=== PATIENT | female | born 1990 ===

== ENCOUNTER 2017-04-04 12:13 | Emergency (ER) | payer OTHER ==
[2017-04-04 12:16] VITALS: BMI 39.1
[2017-04-04 12:19] VITALS: TEMP 99.9; O2SAT 99
[2017-04-04] MEDS ORDERED: guaiFENesin 200 mg/10 ml Syrup UD PO STA (12:46)
--- NOTE | 2017-04-04 13:13 | ED PDOC ---
Arrival/HPI - General Chief Complaint: Cough, Cold, Congestion Time Seen by Provider: 04/04/17 12:24 Historian: Patient - History of Present Illness Narrative History of Present Illness (Text): 04/04/17 13:10 26yo female who present with complaint of sore throat, ear pain, clear productive cough x 3days. States she took Nyquil yesterday. She denies fever, chill, abdominal pain, vomiting, sick contact, travel, any other complaint. Past Medical History - Provider Review Nursing Documentation Reviewed: Yes - Past History Past History: No Previous - Infectious Disease Hx of Infectious Diseases: None - Tetanus Immunization Tetanus Immunization: Unknown - Past Medical History Past Medical History: No Previous - Psychiatric Hx Depression: No Hx Emotional Abuse: No Hx Physical Abuse: No Hx Substance Use: Yes ('former use of marijuana') - Past Surgical History Past Surgical History: No Previous - Anesthesia Hx Anesthesia: No - Suicidal Assessment Feels Threatened In Home Enviroment: No Family/Social History - Physician Review Nursing Documentation Reviewed: Yes Family/Social History: Unknown Family HX Smoking Status: Never Smoked Hx Alcohol Use: Yes (former use) Hx Substance Use: Yes ('former use of marijuana') Hx Substance Use Treatment: No Allergies/Home Meds Allergies/Adverse Reactions: Allergies No Known Allergies Allergy (Verified 04/04/17 12:16) Review of Systems - Physician Review All systems were reviewed & negative as marked: Yes - Review of Systems Constitutional: Normal Eyes: Normal ENT: Normal Respiratory: Normal Cardiovascular: Normal Gastrointestinal: Normal Genitourinary Female: Normal Musculoskeletal: Normal Skin: Normal Neurological: Normal Endocrine: Normal Hemo/Lymphatic: Normal Psychiatric: Normal Physical Exam Vital Signs Temp Pulse Resp BP Pulse Ox 04/04/17 13:15 89 18 118/74 99 04/04/17 12:18 99.9 F H 95 H 17 120/75 99 Medical Decision Making - Medication Orders Current Medication Orders: Discontinued Medications Azithromycin (Zithromax) 500 mg PO STAT STA PRN Reason: Protocol Stop: 04/04/17 12:47 Last Admin: 04/04/17 13:21 Dose: 500 mg Guaifenesin (Robitussin) 200 mg PO Q4H STA Stop: 04/04/17 12:47 Last Admin: 04/04/17 13:21 Dose: 200 mg Ibuprofen (Motrin Tab) 600 mg PO STAT STA Stop: 04/04/17 12:48 Last Admin: 04/04/17 13:21 Dose: 600 mg Disposition/Present on Arrival - Present on Arrival Any Indicators Present on Arrival: No History of DVT/PE: No History of Uncontrolled Diabetes: No Urinary Catheter: No History of Decub. Ulcer: No History Surgical Site Infection Following: None - Disposition Have Diagnosis and Disposition been Completed?: Yes Diagnosis: URI (upper respiratory infection) Disposition: HOME/ ROUTINE Disposition Time: 13:15 Patient Plan: Discharge Patient Problems: Current Active Problems Problem Status Onset URI (upper respiratory infection) Acute Condition: STABLE Discharge Instructions (ExitCare): Upper Respiratory Infection (ED) Additional Instructions: Follow up with your doctor/clinic Return to ED for any new or worsening symptoms Rest and drink plenty of fluid Prescriptions: Albuterol HFA [Ventolin HFA 90 mcg/actuation (8 g)] 2 puff IH [id number] #1 puff Azithromycin [Zithromax] 250 mg PO DAILY #4 tab Promethazine [Phenergan Oral Syrup] 6.25 mg PO Q6 #118 dose Referrals: Cadence Price, [Primary Care Provider] - Follow up with primary
[2017-04-04 13:15] VITALS: BP 118/74; PULSE 89; RESP 18
== END 2017-04-04 13:25 | disposition home or self-care (01) ==
LOC: ED 12:13
DX: J06.9 Acute upper respiratory infection, unspecified (principal)

== ENCOUNTER 2017-07-21 15:32 | Emergency (ER) | payer SELFPAY ==
[2017-07-21 15:32] VITALS: BMI 39.1
--- NOTE | 2017-07-21 15:41 | ED PDOC ---
Arrival/HPI - General Time Seen by Provider: 07/21/17 15:40 Historian: Patient - History of Present Illness Narrative History of Present Illness (Text): 07/21/17 15:40 26 y/o female, pmh including uti, nkda, c/o Past Medical History - Past History Past History: No Previous - Infectious Disease Hx of Infectious Diseases: None - Tetanus Immunization Tetanus Immunization: Unknown - Past Medical History Past Medical History: No Previous - Psychiatric Hx Depression: No Hx Emotional Abuse: No Hx Physical Abuse: No Hx Substance Use: Yes ('former use of marijuana') - Past Surgical History Past Surgical History: No Previous - Anesthesia Hx Anesthesia: No - Suicidal Assessment Feels Threatened In Home Enviroment: No Family/Social History Smoking Status: Never Smoked Hx Alcohol Use: Yes (former use) Hx Substance Use: Yes ('former use of marijuana') Hx Substance Use Treatment: No Allergies/Home Meds Allergies/Adverse Reactions: Allergies No Known Allergies Allergy (Verified 04/04/17 12:16) Disposition/Present on Arrival - Present on Arrival History of DVT/PE: No History of Uncontrolled Diabetes: No Urinary Catheter: No History Surgical Site Infection Following: None - Disposition
== END 2017-07-21 15:33 | disposition left against medical advice (07) ==
LOC: ED 15:32
DX: Z02.89 Encounter for other administrative examinations (principal); R10.9 Unspecified abdominal pain

== ENCOUNTER 2018-08-26 13:51 | Emergency (ER) | payer OTHER ==
--- NOTE | 2018-08-26 15:05 | ED PDOC ---
Arrival/HPI - General Chief Complaint: Abdominal Pain Time Seen by Provider: 08/26/18 14:21 Historian: Patient - History of Present Illness Narrative History of Present Illness (Text): 08/26/18 15:05 A 27 year old female, with no significant past medical history, presents to the emergency department complaining of pelvic discomfort, breast tenderness, and nausea. Patient states she believes she might be has she is currently 10 days late on her menstrual period. Patient denies any vaginal bleeding, any urinary symptoms, vomiting, or any other complaints at this time. PMD: Dr. Zina Lester Past Medical History - Provider Review Nursing Documentation Reviewed: Yes - Past History Past History: No Previous - Infectious Disease Hx of Infectious Diseases: None - Tetanus Immunization Tetanus Immunization: Unknown - Past Medical History Past Medical History: No Previous - Psychiatric Hx Depression: No Hx Emotional Abuse: No Hx Physical Abuse: No Hx Substance Use: Yes ('former use of marijuana') - Past Surgical History Past Surgical History: No Previous - Anesthesia Hx Anesthesia: No - Suicidal Assessment Feels Threatened In Home Enviroment: No Family/Social History - Physician Review Nursing Documentation Reviewed: Yes Family/Social History: No Known Family HX Smoking Status: Never Smoked Hx Alcohol Use: Yes (former use) Hx Substance Use: Yes ('former use of marijuana') Hx Substance Use Treatment: No Allergies/Home Meds Allergies/Adverse Reactions: Allergies No Known Allergies Allergy (Verified 04/04/17 12:16) Review of Systems - Physician Review All systems were reviewed & negative as marked: Yes - Review of Systems Gastrointestinal: Nausea. absent: Vomiting Genitourinary Female: Other (pelvic discomfort). absent: Dysuria, Frequency, Hematuria, Urine Output Changes, Vaginal Bleeding Musculoskeletal: Other (breast tenderness) Physical Exam Vital Signs Reviewed: Yes Vital Signs Temp Pulse Resp BP Pulse Ox 08/26/18 14:16 98.2 F 78 18 118/78 98 Temperature: Afebrile Blood Pressure: Normal Pulse: Regular Respiratory Rate: Normal Appearance: Positive for: Well-Appearing, Non-Toxic, Comfortable Pain Distress: None Mental Status: Positive for: Alert and Oriented X 3 - Systems Exam Head: Present: Atraumatic, Normocephalic Pupils: Present: PERRL Extroacular Muscles: Present: EOMI Conjunctiva: Present: Normal Mouth: Present: Moist Mucous Membranes Neck: Present: Normal Range of Motion Respiratory/Chest: Present: Clear to Auscultation, Good Air Exchange. No: Respiratory Distress, Accessory Muscle Use Cardiovascular: Present: Regular Rate and Rhythm, Normal S1, S2. No: Murmurs Abdomen: No: Tenderness, Distention, Peritoneal Signs Back: Present: Normal Inspection Upper Extremity: Present: Normal Inspection. No: Cyanosis, Edema Lower Extremity: Present: Normal Inspection. No: Edema Neurological: Present: GCS=15, CN II-XII Intact, Speech Normal Skin: Present: Warm, Dry, Normal Color. No: Rashes Psychiatric: Present: Alert, Oriented x 3, Normal Insight, Normal Concentration Medical Decision Making ED Course and Treatment: 08/26/18 15:07 Impression: 27 year old female here for possible . Plan: -- POC Urine Test -- Reassess and disposition Progress Notes: Uhcg : (-). Beta quant : < 2.39 On reevaluation, patient reports no abdominal pain or vaginal bleeding. Advised to follow up with primary care physician or goods layer in 1-2 days without fail. Return to the emergency room at any time for any new or worsening symptoms. Patient states she fully agrees with and understands discharge instructions. States that she agrees with the plan and disposition. Verbalized and repeated discharge instructions and plan. I have given the patient opportunity to ask any additional questions. - PA / BATTERY PLATE ASSEMBLER / Resident Statement MD/DO has reviewed & agrees with the documentation as recorded. - Scribe Statement The provider has reviewed the documentation as recorded by the Álvaro Silva Provider Scribe Attestation: All medical record entries made by the Álvaro were at my direction and personally dictated by me. I have reviewed the chart and agree that the record accurately reflects my personal performance of the history, physical exam, medical decision making, and the department course for this patient. I have also personally directed, reviewed, and agree with the discharge instructions and disposition. Disposition/Present on Arrival - Present on Arrival Any Indicators Present on Arrival: No History of DVT/PE: No History of Uncontrolled Diabetes: No Urinary Catheter: No History of Decub. Ulcer: No History Surgical Site Infection Following: None - Disposition Have Diagnosis and Disposition been Completed?: Yes Diagnosis: test negative Disposition: HOME/ ROUTINE Disposition Time: 17:45 Patient Plan: Discharge Condition: STABLE Discharge Instructions (ExitCare): Tests Referrals: Zina Lester MD [Primary Care Provider] - Follow up with primary Forms: [employer] ([place]), WORK NOTE
[2018-08-27 00:26] VITALS: BP 114/76; PULSE 80; RESP 18; TEMP 98.1; O2SAT 99; BMI 37.0
== END 2018-08-26 18:15 | disposition home or self-care (01) ==
LOC: ED 13:51
DX: Z32.02 Encounter for pregnancy test, result negative (principal)

== ENCOUNTER 2019-01-07 22:14 | Emergency (ER) | payer SELFPAY ==
[2019-01-07 22:33] VITALS: BP 136/85; PULSE 76; RESP 18; TEMP 97.8; O2SAT 97; BMI 38.2
--- NOTE | 2019-01-07 23:05 | ED PDOC ---
Arrival/HPI - General Chief Complaint: Female Genitourinary Time Seen by Provider: 01/07/19 22:28 Historian: Patient - History of Present Illness Narrative History of Present Illness (Text): 01/07/19 23:07 28 yo F presents to the emergency room complaining of vaginal spotting, states that she had unprotected sex in October, did not have her period in November, then she had her period in the beginning of December and then today she noticed spotting this morning which has resolved since. She reports no actual vaginal bleeding, no abdominal pain, no nausea/vomiting, no fever, no urinary symptoms. Past Medical History - Past History Past History: No Previous - Infectious Disease Hx of Infectious Diseases: None - Tetanus Immunization Tetanus Immunization: Unknown - Past Medical History Past Medical History: No Previous - Psychiatric Hx Depression: No Hx Emotional Abuse: No Hx Physical Abuse: No Hx Substance Use: No ('former use of marijuana') - Past Surgical History Past Surgical History: No Previous - Anesthesia Hx Anesthesia: No - Suicidal Assessment Feels Threatened In Home Enviroment: No Family/Social History Family/Social History: No Known Family HX Smoking Status: Never Smoked Hx Alcohol Use: Yes (former use) Frequency of alcohol use: Socially Hx Substance Use: No ('former use of marijuana') Hx Substance Use Treatment: No Allergies/Home Meds Allergies/Adverse Reactions: Allergies No Known Allergies Allergy (Verified 01/07/19 22:28) Home Medications: Home Meds Medication Instructions Recorded Confirmed No Known Home Med 01/07/19 01/07/19 Review of Systems - Review of Systems Constitutional: absent: Fatigue, Fevers Respiratory: absent: SOB, Cough Cardiovascular: absent: Chest Pain, Palpitations Gastrointestinal: absent: Abdominal Pain, Nausea, Vomiting Genitourinary Female: Other (+vaginal spotting today). absent: Dysuria, Frequency, Vaginal Bleeding, Vaginal Discharge Skin: absent: Rash, Skin Lesions Neurological: absent: Headache, Dizziness Physical Exam Vital Signs Temp Pulse Resp BP Pulse Ox 01/07/19 22:28 97.8 F 76 18 97 01/07/19 22:26 97.8 F 76 18 136/85 97 Temperature: Afebrile Blood Pressure: Normal Pulse: Regular Respiratory Rate: Normal Appearance: Positive for: Well-Appearing, Non-Toxic, Comfortable Pain Distress: None Mental Status: Positive for: Alert and Oriented X 3 - Systems Exam Head: Present: Atraumatic, Normocephalic Pupils: Present: PERRL Extroacular Muscles: Present: EOMI Conjunctiva: Present: Normal Mouth: Present: Moist Mucous Membranes Neck: Present: Normal Range of Motion Respiratory/Chest: Present: Clear to Auscultation, Good Air Exchange. No: Respiratory Distress, Accessory Muscle Use Cardiovascular: Present: Regular Rate and Rhythm, Normal S1, S2. No: Murmurs Abdomen: No: Tenderness, Distention, Peritoneal Signs Back: Present: Normal Inspection Upper Extremity: Present: Normal Inspection. No: Cyanosis, Edema Lower Extremity: Present: Normal Inspection. No: Edema Neurological: Present: GCS=15, CN II-XII Intact, Speech Normal Skin: Present: Warm, Dry, Normal Color. No: Rashes Psychiatric: Present: Alert, Oriented x 3, Normal Insight, Normal Concentration Medical Decision Making ED Course and Treatment: 01/07/19 23:10 [facility] [place] results discussed with the patient. Advised to follow-up with a MACHINE MOLDER [employer]QUEEZE, patient provided with referrals to local clinics, encouraged to consider OCP medication as a form of control and to help regulate her menstrual cycle. Advised to follow up with the clinic in 1-2 days without fail. Return to the emergency room at any time for any new or worsening symptoms. Patient states she fully agrees with and understands discharge instructions. States that she agrees with the plan and disposition. Verbalized and repeated discharge instructions and plan. I have given the patient opportunity to ask any additional questions. - PA / CUSTOMS APPRAISER / Resident Statement MD/DO has reviewed & agrees with the documentation as recorded. Disposition/Present on Arrival - Present on Arrival Any Indicators Present on Arrival: No History of DVT/PE: No History of Uncontrolled Diabetes: No Urinary Catheter: No History of Decub. Ulcer: No History Surgical Site Infection Following: None - Disposition Have Diagnosis and Disposition been Completed?: Yes Diagnosis: test negative Disposition: HOME/ ROUTINE Disposition Time: 23:00 Patient Plan: Discharge Patient Problems: Current Active Problems Problem Status Onset test negative Acute Condition: STABLE Discharge Instructions (ExitCare): Tests Referrals: Zina Lester MD [Primary Care Provider] - [facility] - Follow up with primary [facility] [Outside] - Follow up with primary [facility] [Outside] - Follow up with primary Forms: [employer] ([place]), SCHOOL NOTE
== END 2019-01-07 23:27 | disposition home or self-care (01) ==
LOC: ED 22:14
DX: Z32.02 Encounter for pregnancy test, result negative (principal)